=== PATIENT | male | born 1960 | race Hispanic/Latino ===

== ENCOUNTER 2017-08-25 10:54 | Inpatient (IN) | payer OTHER ==
[~2017-08-25] VITALS: Ht 162.6 cm; Wt 94.8 kg
[2017-08-25] VITALS (9 sets, daily range): BP systolic 130–158; BP diastolic 75–98
[2017-08-25] MEDS ORDERED: INSLAN SQ (14:02)
[2017-08-25] MEDS ORDERED: FURO20TA6 PO (14:04)
[2017-08-25] MEDS ORDERED: AEC81 PO (14:04)
[2017-08-25] MEDS ORDERED: LISI10TA7 PO (14:04)
[2017-08-25] MEDS ORDERED: LIDOCAINE HCL 2% 20ML ONE (17:51)
[2017-08-25] MEDS ORDERED: BIVALIRUDIN 250 MG/VIAL IV ONE (17:51)
[2017-08-25] MEDS ORDERED: NITROGLYCERIN 5 MG/ML 10 ML VIAL IV ONE (17:51)
[2017-08-25] MEDS ORDERED: HEPARIN SODIUM 1000UNIT/ML 10ML VIAL ONE (17:51)
[2017-08-25] MEDS ORDERED: IOPAMIDOL-370 100 ML VIAL IV ONE (17:52)
[2017-08-25] MEDS ORDERED: ISOVUE-370 50ML VIAL IV ONE (17:52)
[2017-08-25] MEDS ORDERED: LABETALOL 20 MG/4 ML DISP.SYRIN IV ONE ×3 (18:20→18:29)
[2017-08-25] MEDS ORDERED: NITROGLYCERIN 50 MG/D5% WATER 1 BOT ONE (18:25)
[2017-08-25] MEDS ORDERED: SODIUM CHLORIDE 0.9% 1000ML 1,000 ML IV SCH (18:48)
[2017-08-25] MEDS ORDERED: DEXTROSE 50%-WATER 50 ML DISP.SYRIN IV PRN (19:00)
[2017-08-25] MEDS ORDERED: GLUCAGON 1MG KIT 1 MG ML IM PRN (19:00)
[2017-08-25 20:20] LABS: HEMOGLOBIN A1C 9.3 % (4.0-6.0)
[2017-08-25 20:29] LABS: CHOLESTEROL 170 mg/dL (<200); HDL CHOLESTEROL 38 mg/dL (29-71); LDL DIRECT 113 mg/dL (0-99); TRIGLYCERIDES 136 mg/dL (30-200)
[2017-08-25] MEDS ORDERED: ONDANSETRON HCL 4 MG/2 ML VIAL IVP PRN (20:45)
[2017-08-25] MEDS ORDERED: NITROGLYCERIN 50 MG/D5% WATER 250 BOT IV PRN (20:45)
[2017-08-25] MEDS: METOPROLOL TARTRATE 25 MG TAB PO SCH (21:07)
[2017-08-25] MEDS ORDERED: MAGNESIUM 2GM PREMIX 50ML 50 ML IV PRN (21:45)
[2017-08-25] MEDS ORDERED: LIDOCAINE HCL-MPF 1% 2ML VIAL IVP PRN (21:45)
[2017-08-25] MEDS ORDERED: ACETAMINOPHEN 325 MG TAB PO PRN ×2 (21:45)
[2017-08-25] MEDS ORDERED: POTASSIUM CHLORIDE 20MEQ/100ML 100 ML IV PRN (21:45)
[2017-08-25] MEDS ORDERED: POTASSIUM CHLORIDE 20 MEQ ERTAB PO PRN (21:45)
[2017-08-25] MEDS ORDERED: POTASSIUM CHLORIDE 10% ELIXIR 20 MEQ/15 ML UDCUP PO PRN (21:45)
[2017-08-25] MEDS ORDERED: TEMAZEPAM 15 MG CAPSULE PO ONE (22:00)
[2017-08-25] MEDS ORDERED: TEMAZEPAM 15 MG CAPSULE ONE (23:15)
[2017-08-25] MEDS: INSULIN HUMULIN R 100 UNIT/ML 3ML SQ SCH (23:59)
[2017-08-26] VITALS (30 sets, daily range): BP systolic 92–162; BP diastolic 39–111
[2017-08-26 03:55] LABS: MEAN CORPUSCULAR HEMOGLOBIN 30.7 pg (27.0-33.0); MEAN CORPUSCULAR VOLUME 87.6 fL (79-99); PLATELET COUNT (AUTO) 230 K/uL (130-400); RED BLOOD CELL COUNT(AUTO) 3.43 MIL/uL (4.50-6.20); RED CELL DISTRIBUTION WIDTH 14.3 % (11.0-15.5); WHITE BLOOD COUNT (AUTO) 8.7 K/uL (4.8-10.8)
[2017-08-26 04:03] LABS: INR 0.97 (0.85-1.15); PARTIAL THROMBOPLASTIN TIME 31.9 SEC (26.3-35.5); PROTHROMBIN TIME 10.2 SEC (9.6-11.6)
[2017-08-26 04:05] LABS: B-TYPE NATRIURETIC PEPTIDE 518 pg/mL (0-100)
[2017-08-26 04:07] LABS: POTASSIUM 4.1 mmol/L (3.5-5.1)
[2017-08-26 04:11] LABS: HEMOGLOBIN A1C 9.2 % (4.0-6.0)
[2017-08-26] MEDS: INSULIN HUMULIN R 100 UNIT/ML 3ML SQ SCH (06:37)
[2017-08-26] MEDS ORDERED: SODIUM CHLORIDE 0.9% 1000ML 1,000 ML IV ONE ×2 (08:13→09:32)
[2017-08-26] MEDS: METOPROLOL TARTRATE 25 MG TAB PO SCH (08:48)
[2017-08-26] MEDS ORDERED: AMINOCAPROIC ACID 250 MG/ML 20 ML VIAL IV ONE (08:53)
[2017-08-26] MEDS ORDERED: EPINEPHRINE 1 MG/ML AMPULE ONE (08:53)
[2017-08-26] MEDS ORDERED: ESMOLOL HCL 10 MG/ML 10 ML VIAL ONE (08:53)
[2017-08-26] MEDS ORDERED: MILRINONE-D5W 20 MG/100 ML 0 ML IV ONE (08:53)
[2017-08-26] MEDS ORDERED: FENTANYL CITRATE PF 50 MCG/1 ML 20ML VIAL IJ ONE (08:53)
[2017-08-26] MEDS ORDERED: PROPOFOL 10 MG/ML 20ML VIAL IV ONE (08:53)
[2017-08-26] MEDS ORDERED: PROTAMINE SULFATE 10 MG/ML 25ML VIAL IV ONE (08:53)
[2017-08-26] MEDS ORDERED: ROCURONIUM BROMIDE 10MG/1ML 5ML VL ONE (08:53)
[2017-08-26] MEDS ORDERED: GLYCOPYRROLATE 0.2 MG/ML 5 ML VIAL ONE (08:53)
[2017-08-26] MEDS ORDERED: NOREPINEPHRINE BITARTRATE 1 MG/1 ML ML IV ONE (08:53)
[2017-08-26] MEDS ORDERED: HEPARIN SODIUM 1000UNIT/ML 10ML VIAL ONE ×2 (08:53→10:11)
[2017-08-26] MEDS ORDERED: AMIODARONE HCL 900MG/18ML IV ONE (08:53)
[2017-08-26] MEDS ORDERED: LIDOCAINE PF 2% 5ML ABBOJECT ONE (08:53)
[2017-08-26] MEDS ORDERED: MIDAZOLAM HCL 1 MG/ML 5ML VIAL ONE (08:54)
[2017-08-26] MEDS ORDERED: NITROGLYCERIN 50 MG/D5% WATER 1 BOT ONE (08:55)
[2017-08-26] MEDS ORDERED: FAMOTIDINE/PF 20 MG/2 ML VIAL IV SCH (09:00)
[2017-08-26] MEDS ORDERED: ASPIRIN 81 MG EC TAB PO SCH (09:00)
[2017-08-26] MEDS ORDERED: CEFUROXIME SODIUM 1.5 GM VIAL ONE ×2 (09:32→11:47)
[2017-08-26 10:09] LABS: ABG HCO3 27.2 mmol/L (21.0-28.0); ABG PCO2 40 mmHg (35-48)
[2017-08-26] MEDS ORDERED: THROMBIN-JMI 5000 UNIT/VIAL TP ONE (10:11)
[2017-08-26] MEDS ORDERED: PAPAVERINE HCL 30 MG/ML 2ML VIAL ONE (10:13)
[2017-08-26] MEDS ORDERED: BACITRACIN 50,000 UNIT VIAL ONE (10:13)
[2017-08-26 11:27] LABS: ABG BASE EXCESS 2.2 mmol/L (-2.0-3.0); ABG HCO3 26.4 mmol/L (21.0-28.0); ABG OXYGEN SATURATION 98.7 % (95.0-99.0); ABG PCO2 39 mmHg (35-48)
[2017-08-26] MEDS ORDERED: CEFUROXIME SODIUM 1.5 GM VIAL IVP SCH (12:00)
[2017-08-26] MEDS ORDERED: CEFUROXIME 1.5GM+NS 100ML 100 ML IV SCH ×2 (12:00→20:30)
[2017-08-26] MEDS ORDERED: WATER FOR INJECTION,STERILE 20 ML VIAL IJ SCH (12:00)
[2017-08-26] MEDS ORDERED: SODIUM CHLORIDE 0.9% 500ML 500 ML IV SCH (12:23)
[2017-08-26] MEDS ORDERED: GLUCAGON 1MG KIT 1 MG ML IM PRN (12:30)
[2017-08-26] MEDS ORDERED: NOREPINEPHRINE 4MG/NS 250ML 250 ML IV PRN (12:30)
[2017-08-26] MEDS ORDERED: PROPOFOL 1000 MG/100 ML 100 ML IV PRN (12:30)
[2017-08-26] MEDS ORDERED: CALCIUM GLUCONATE 1 GM in SODIUM CHLORIDE 0.9% 50 ML IV PRN (12:30)
[2017-08-26] MEDS ORDERED: ALBUMIN (HUMAN) 5% 250 ML IV PRN (12:30)
[2017-08-26] MEDS ORDERED: SODIUM CHLORIDE 0.9% 1000ML 1,000 ML IV SCH (12:30)
[2017-08-26] MEDS ORDERED: ACETAMINOPHEN 650 MG SUPPOSITORY RC PRN (12:30)
[2017-08-26] MEDS ORDERED: AMINOCAPROIC ACID 15,000 MG in SODIUM CHLORIDE 0.9% 250 ML IV SCH (12:30)
[2017-08-26] MEDS ORDERED: POTASSIUM PHOS 15 mMOL+NS250ML 250 ML IV PRN (12:30)
[2017-08-26] MEDS ORDERED: DEXTROSE 50%-WATER 50 ML DISP.SYRIN IV PRN (12:30)
[2017-08-26] MEDS ORDERED: SODIUM CHLORIDE 0.9% 250 ML IV PRN (12:30)
[2017-08-26] MEDS ORDERED: MORPHINE SULFATE 2 MG/ML 1ML SYG IV PRN (12:30)
[2017-08-26] MEDS ORDERED: NITROGLYCERIN 50 MG/D5% WATER 250 BOT IV SCH (12:30)
[2017-08-26] MEDS ORDERED: ACETAMINOPHEN 325 MG TAB PO PRN (12:30)
[2017-08-26] MEDS ORDERED: MORPHINE SULFATE 4 MG/1ML SYG IV PRN (12:30)
[2017-08-26] MEDS ORDERED: SODIUM CHLORIDE 0.9% 10 ML VIAL IVP PRN (12:30)
[2017-08-26] MEDS ORDERED: EPINEPHRINE 2 MG in SODIUM CHLORIDE 0.9% 250 ML IV PRN (12:30)
[2017-08-26] MEDS ORDERED: NICARDIPINE HCL 100 MG in SODIUM CHLORIDE 0.9% 60 ML IV PRN (12:30)
[2017-08-26 12:48] LABS: ABG BASE EXCESS -2.2 mmol/L (-2.0-3.0); ABG HCO3 22.5 mmol/L (21.0-28.0); ABG OXYGEN SATURATION 98.5 % (95.0-99.0); ABG PCO2 38 mmHg (35-48)
[2017-08-26] MEDS ORDERED: OCTYL 2-CYANOACRYLATE 1 EACH TP ONE (12:54)
[2017-08-26] MEDS: INSULIN REGULAR, HUMAN 3ML 100 UNIT in SODIUM CHLORIDE 0.9% 99 ML IV SCH ×4 (13:21→21:21)
[2017-08-26 13:41] LABS: HEMATOCRIT 30.1 % (42-54); MEAN CORPUSCULAR HEMOGLOBIN 30.2 pg (27.0-33.0); MEAN CORPUSCULAR VOLUME 88.9 fL (79-99); NUCLEATED RED BLOOD CELLS 0.1 % (0.0-0.19); PLATELET COUNT (AUTO) 209 K/uL (130-400); RED BLOOD CELL COUNT(AUTO) 3.38 MIL/uL (4.50-6.20); RED CELL DISTRIBUTION WIDTH 14.4 % (11.0-15.5); WHITE BLOOD COUNT (AUTO) 17.6 K/uL (4.8-10.8)
[2017-08-26 13:43] LABS: ABG BASE EXCESS -3.2 mmol/L (-2.0-3.0); ABG HCO3 21.8 mmol/L (21.0-28.0); ABG OXYGEN SATURATION 96.5 % (95.0-99.0); ABG PCO2 39 mmHg (35-48)
[2017-08-26] MEDS: SODIUM BICARB 8.4% 50ML SYRINGE IV PRN ×2 (13:46→13:47)
[2017-08-26] MEDS ORDERED: SODIUM BICARB 50MEQ 50ML VIAL ONE (13:46)
[2017-08-26 13:52] LABS: CREATININE 0.9 mg/dL (0.5-1.5); MAGNESIUM 1.6 mg/dL (1.80-2.40); PHOSPHORUS 3.5 mg/dL (2.5-4.9); POTASSIUM 4.2 mmol/L (3.5-5.1)
[2017-08-26] MEDS: ONDANSETRON HCL 4 MG/2 ML VIAL IV PRN ×2 (14:48→22:41)
[2017-08-26] MEDS: MAGNESIUM 2GM PREMIX 50ML 50 ML IV PRN (14:52)
[2017-08-26 15:24] LABS: ABG BASE EXCESS 0.1 mmol/L (-2.0-3.0); ABG HCO3 23.5 mmol/L (21.0-28.0); ABG OXYGEN SATURATION 97.9 % (95.0-99.0); ABG PCO2 35 mmHg (35-48)
[2017-08-26 17:12] LABS: ABG BASE EXCESS 0.1 mmol/L (-2.0-3.0); ABG HCO3 24.3 mmol/L (21.0-28.0); ABG OXYGEN SATURATION 96.7 % (95.0-99.0); ABG PCO2 38 mmHg (35-48)
[2017-08-26] MEDS: HYDROCODONE/ACETAMINOPHEN 5/325 MG TAB PO PRN (21:17)
[2017-08-26] MEDS: CEFUROXIME SODIUM 1.5 GM VIAL IVP SCH (21:23)
[2017-08-26] MEDS: WATER FOR INJECTION,STERILE 20 ML VIAL IJ SCH (21:24)
[2017-08-27] VITALS (25 sets, daily range): BP systolic 83–155; BP diastolic 35–76
[2017-08-27 03:33] LABS: MEAN CORPUSCULAR HEMOGLOBIN 30.1 pg (27.0-33.0); MEAN CORPUSCULAR HGB CONC 34.1 g/dL (32.0-36.0); MEAN CORPUSCULAR VOLUME 88.4 fL (79-99); PLATELET COUNT (AUTO) 163 K/uL (130-400); RED BLOOD CELL COUNT(AUTO) 2.94 MIL/uL (4.50-6.20); RED CELL DISTRIBUTION WIDTH 14.3 % (11.0-15.5); WHITE BLOOD COUNT (AUTO) 16.3 K/uL (4.8-10.8)
[2017-08-27 04:04] LABS: CREATININE 1.3 mg/dL (0.5-1.5); MAGNESIUM 2.2 mg/dL (1.80-2.40); PHOSPHORUS 3.3 mg/dL (2.5-4.9); POTASSIUM 3.9 mmol/L (3.5-5.1)
[2017-08-27] MEDS: POTASSIUM CHLORIDE 20MEQ/100ML 100 ML IV PRN (04:54)
[2017-08-27] MEDS ORDERED: ALBUMIN (HUMAN) 5% 250 ML IV ONE (05:07)
[2017-08-27] MEDS ORDERED: ALBUMIN (HUMAN) 5% 250 ML IV SCH (05:15)
[2017-08-27] MEDS: HYDROCODONE/ACETAMINOPHEN 5/325 MG TAB PO PRN (05:35)
[2017-08-27] MEDS: PANTOPRAZOLE SODIUM 40 MG TABLET.DR PO SCH (08:39)
[2017-08-27] MEDS: CEFUROXIME SODIUM 1.5 GM VIAL IVP SCH ×2 (08:39→19:51)
[2017-08-27] MEDS: WATER FOR INJECTION,STERILE 20 ML VIAL IJ SCH ×2 (08:39→19:51)
[2017-08-27] MEDS: ASPIRIN 81 MG EC TAB PO SCH (10:30)
[2017-08-27] MEDS ORDERED: ATORVASTATIN CALCIUM 40 MG TABLET PO SCH (21:00)
[2017-08-28] VITALS (20 sets, daily range): BP systolic 96–164; BP diastolic 36–77
[2017-08-28 04:01] LABS: HEMATOCRIT 26.5 % (42-54); MEAN CORPUSCULAR HEMOGLOBIN 28.5 pg (27.0-33.0); MEAN CORPUSCULAR HGB CONC 32.6 g/dL (32.0-36.0); MEAN CORPUSCULAR VOLUME 87.2 fL (79-99); PLATELET COUNT (AUTO) 172 K/uL (130-400); RED BLOOD CELL COUNT(AUTO) 3.04 MIL/uL (4.50-6.20); RED CELL DISTRIBUTION WIDTH 14.4 % (11.0-15.5); WHITE BLOOD COUNT (AUTO) 19.3 K/uL (4.8-10.8)
[2017-08-28 04:10] LABS: B-TYPE NATRIURETIC PEPTIDE 647 pg/mL (0-100)
[2017-08-28 04:14] LABS: BAND NEUTROPHILS % (MANUAL) 12 % (0-2); CREATININE 1.1 mg/dL (0.5-1.5); LYMPHOCYTES % (MANUAL) 9 % (22-44); MAGNESIUM 2.4 mg/dL (1.80-2.40); MAN.DIFF COMMENT-IMPRESSION MANUAL DIFFERENTIAL; MONOCYTES % (MANUAL) 1 % (2-9); PHOSPHORUS 3.4 mg/dL (2.5-4.9); PLATELET MORPHOLOGY COMMENT ADEQUATE; POTASSIUM 3.8 mmol/L (3.5-5.1); SEGMENTED NEUTROPHILS % 78 % (40-70)
[2017-08-28] MEDS: INSULIN HUMULIN R 100 UNIT/ML 3ML SQ SCH ×4 (07:30→21:00)
[2017-08-28] MEDS: FUROSEMIDE 20 MG TABLET PO SCH ×2 (08:47→17:15)
[2017-08-28] MEDS: ASPIRIN 81 MG EC TAB PO SCH (08:47)
[2017-08-28] MEDS: PANTOPRAZOLE SODIUM 40 MG TABLET.DR PO SCH (08:47)
[2017-08-28] MEDS: POTASSIUM CHLORIDE 20MEQ/100ML 100 ML IV PRN (08:51)
[2017-08-28] MEDS: METOPROLOL TARTRATE 25 MG TAB PO SCH (08:51)
[2017-08-28] MEDS: ASPIRIN 81MG TAB.CHEW PO SCH (09:00)
[2017-08-28] MEDS: HYDROCODONE/ACETAMINOPHEN 5/325 MG TAB PO PRN (18:07)
[2017-08-28] MEDS: ATORVASTATIN CALCIUM 40 MG TABLET PO SCH (20:00)
[2017-08-29 03:36] LABS: HEMATOCRIT 24.6 % (42-54); MEAN CORPUSCULAR HEMOGLOBIN 29.5 pg (27.0-33.0); MEAN CORPUSCULAR HGB CONC 33.3 g/dL (32.0-36.0); MEAN CORPUSCULAR VOLUME 88.4 fL (79-99); NUCLEATED RED BLOOD CELLS 0.1 % (0.0-0.19); PLATELET COUNT (AUTO) 185 K/uL (130-400); RED BLOOD CELL COUNT(AUTO) 2.78 MIL/uL (4.50-6.20); RED CELL DISTRIBUTION WIDTH 14.6 % (11.0-15.5); WHITE BLOOD COUNT (AUTO) 17.7 K/uL (4.8-10.8)
[2017-08-29 03:48] VITALS: BP 120/62
[2017-08-29 04:00] LABS: CREATININE 1.3 mg/dL (0.5-1.5); MAGNESIUM 2.3 mg/dL (1.80-2.40); PHOSPHORUS 3.4 mg/dL (2.5-4.9); POTASSIUM 4.1 mmol/L (3.5-5.1)
[2017-08-29 04:21] LABS: BAND NEUTROPHILS % (MANUAL) 10 % (0-2); LYMPHOCYTES % (MANUAL) 10 % (22-44); MAN.DIFF COMMENT-IMPRESSION MANUAL DIFFERENTIAL; MONOCYTES % (MANUAL) 3 % (2-9); SEGMENTED NEUTROPHILS % 77 % (40-70)
[2017-08-29 04:22] LABS: PLATELET MORPHOLOGY COMMENT ADEQUATE
[2017-08-29] MEDS: INSULIN HUMULIN R 100 UNIT/ML 3ML SQ SCH ×4 (05:59→23:14)
[2017-08-29 07:48] VITALS: BP 124/64
[2017-08-29] MEDS: ASPIRIN 81MG TAB.CHEW PO SCH (09:00)
[2017-08-29] MEDS: FUROSEMIDE 20 MG TABLET PO SCH ×2 (09:02→17:25)
[2017-08-29] MEDS: ASPIRIN 81 MG EC TAB PO SCH (09:02)
[2017-08-29] MEDS: METOPROLOL TARTRATE 25 MG TAB PO SCH ×2 (09:03→20:14)
[2017-08-29] MEDS: PANTOPRAZOLE SODIUM 40 MG TABLET.DR PO SCH (09:03)
[2017-08-29 11:11] VITALS: BP 124/68
[2017-08-29 15:59] VITALS: BP 133/75
[2017-08-29 19:00] VITALS: BP 115/59
[2017-08-29] MEDS: ATORVASTATIN CALCIUM 40 MG TABLET PO SCH (20:14)
[2017-08-29 23:06] VITALS: BP 111/64
[2017-08-30 03:17] VITALS: BP 115/61
[2017-08-30 03:43] LABS: HEMATOCRIT 25.7 % (42-54); MEAN CORPUSCULAR HEMOGLOBIN 28.6 pg (27.0-33.0); MEAN CORPUSCULAR HGB CONC 32.8 g/dL (32.0-36.0); MEAN CORPUSCULAR VOLUME 87.3 fL (79-99); NUCLEATED RED BLOOD CELLS 0.4 % (0.0-0.19); PLATELET COUNT (AUTO) 215 K/uL (130-400); RED BLOOD CELL COUNT(AUTO) 2.94 MIL/uL (4.50-6.20); RED CELL DISTRIBUTION WIDTH 14.3 % (11.0-15.5); WHITE BLOOD COUNT (AUTO) 13.8 K/uL (4.8-10.8)
[2017-08-30] MEDS: INSULIN HUMULIN R 100 UNIT/ML 3ML SQ SCH ×4 (06:37→21:00)
[2017-08-30 07:29] VITALS: BP 134/77
[2017-08-30] MEDS: ASPIRIN 81 MG EC TAB PO SCH (08:40)
[2017-08-30] MEDS: FUROSEMIDE 20 MG TABLET PO SCH ×2 (08:40→16:44)
[2017-08-30] MEDS: PANTOPRAZOLE SODIUM 40 MG TABLET.DR PO SCH (08:40)
[2017-08-30] MEDS: ASPIRIN 81MG TAB.CHEW PO SCH (08:40)
[2017-08-30] MEDS: ENOXAPARIN SODIUM 30 MG/0.3 ML SQ SCH (08:41)
[2017-08-30] MEDS: METOPROLOL TARTRATE 25 MG TAB PO SCH ×2 (08:41→20:06)
[2017-08-30 11:09] VITALS: BP 134/74
[2017-08-30] MEDS: HYDROCODONE/ACETAMINOPHEN 5/325 MG TAB PO PRN (15:19)
[2017-08-30 16:22] VITALS: BP 150/88
[2017-08-30] MEDS: IPRATROPIUM 0.5 MG/2.5 ML INH IH SCH ×2 (16:33→22:35)
[2017-08-30 19:03] VITALS: BP 103/57
[2017-08-30] MEDS ORDERED: ATORVASTATIN CALCIUM 40 MG TABLET PO SCH (21:00)
[2017-08-30 23:42] VITALS: BP 127/69
[2017-08-31 03:22] LABS: HEMATOCRIT 24.4 % (42-54); MEAN CORPUSCULAR HEMOGLOBIN 29.5 pg (27.0-33.0); MEAN CORPUSCULAR HGB CONC 34.1 g/dL (32.0-36.0); MEAN CORPUSCULAR VOLUME 86.5 fL (79-99); NUCLEATED RED BLOOD CELLS 0.1 % (0.0-0.19); PLATELET COUNT (AUTO) 250 K/uL (130-400); RED BLOOD CELL COUNT(AUTO) 2.82 MIL/uL (4.50-6.20); RED CELL DISTRIBUTION WIDTH 14.1 % (11.0-15.5); WHITE BLOOD COUNT (AUTO) 12.2 K/uL (4.8-10.8)
[2017-08-31 03:31] VITALS: BP 150/77
[2017-08-31 03:33] LABS: MAGNESIUM 1.8 mg/dL (1.80-2.40)
[2017-08-31] MEDS: HYDROCODONE/ACETAMINOPHEN 5/325 MG TAB PO PRN (04:42)
[2017-08-31] MEDS: MAGNESIUM 2GM PREMIX 50ML 50 ML IV PRN (04:43)
[2017-08-31] MEDS: INSULIN HUMULIN R 100 UNIT/ML 3ML SQ SCH ×2 (06:12→11:52)
[2017-08-31] MEDS: IPRATROPIUM 0.5 MG/2.5 ML INH IH SCH (06:31)
[2017-08-31 07:24] VITALS: BP 137/73
[2017-08-31] MEDS: METOPROLOL TARTRATE 25 MG TAB PO SCH (08:51)
[2017-08-31] MEDS: FUROSEMIDE 20 MG TABLET PO SCH (08:51)
[2017-08-31] MEDS: PANTOPRAZOLE SODIUM 40 MG TABLET.DR PO SCH (08:51)
[2017-08-31] MEDS: ASPIRIN 81MG TAB.CHEW PO SCH (08:51)
[2017-08-31] MEDS: ENOXAPARIN SODIUM 30 MG/0.3 ML SQ SCH (08:52)
[2017-08-31] MEDS ORDERED: CLOPIDOGREL BISULFATE 75 MG TAB PO SCH (09:00)
[2017-08-31] MEDS ORDERED: METO25 PO (09:50)
[2017-08-31] MEDS ORDERED: FURO40TA5 PO (09:50)
[2017-08-31] MEDS ORDERED: ATOR40TA69 PO (09:50)
[2017-08-31] MEDS ORDERED: LISI2.5T2 PO (09:50)
[2017-08-31] MEDS ORDERED: APIX5TAB PO (09:50)
[2017-08-31] MEDS ORDERED: AMIO200T2 PO (09:50)
[2017-08-31 11:26] VITALS: BP 147/83
== END 2017-08-31 12:56 | disposition home or self-care (01) | DRG 233 ==
LOC: 2AH 12:58 → 2CH 18:40 → 2CV 08-26 09:30 → 2BH 08-26 17:35 → 2AH 08-28 23:10
PROVIDERS: ADMIT Internal Medicine Cardiovascular Disease; ATTEND Internal Medicine Cardiovascular Disease
PROC: 4A023N7 Measurement of Cardiac Sampling and Pressure, Left Heart, Percutaneous Approach (ICD-10-PCS; principal; 2017-08-25)
PROC: B2111ZZ Fluoroscopy of Multiple Coronary Arteries using Low Osmolar Contrast (ICD-10-PCS; 2017-08-25)
PROC: B2151ZZ Fluoroscopy of Left Heart using Low Osmolar Contrast (ICD-10-PCS; 2017-08-25)
PROC: 021209W Bypass Coronary Artery, Three Arteries from Aorta with Autologous Venous Tissue, Open Approach (ICD-10-PCS; 2017-08-26)
PROC: 02100Z9 Bypass Coronary Artery, One Artery from Left Internal Mammary, Open Approach (ICD-10-PCS; 2017-08-26)
PROC: 06BP0ZZ Excision of Right Saphenous Vein, Open Approach (ICD-10-PCS; 2017-08-26)
PROC: B2131ZZ Fluoroscopy of Multiple Coronary Artery Bypass Grafts using Low Osmolar Contrast (ICD-10-PCS; 2017-08-26 09:41)
DX: I21.4 Non-ST elevation (NSTEMI) myocardial infarction (principal); I50.33 Acute on chronic diastolic (congestive) heart failure; E66.01 Morbid (severe) obesity due to excess calories; I31.3 Pericardial effusion (noninflammatory); I48.91 Unspecified atrial fibrillation; E11.65 Type 2 diabetes mellitus with hyperglycemia; I48.92 Unspecified atrial flutter; E78.5 Hyperlipidemia, unspecified; G47.33 Obstructive sleep apnea (adult) (pediatric); I11.0 Hypertensive heart disease with heart failure; I25.10 Atherosclerotic heart disease of native coronary artery without angina pectoris; I34.0 Nonrheumatic mitral (valve) insufficiency; I49.3 Ventricular premature depolarization; J44.9 Chronic obstructive pulmonary disease, unspecified; Z72.0 Tobacco use; Z79.01 Long term (current) use of anticoagulants; Z79.82 Long term (current) use of aspirin; Z79.899 Other long term (current) drug therapy; Z90.49 Acquired absence of other specified parts of digestive tract; Z91.19 Patient's noncompliance with other medical treatment and regimen; Z83.3 Family history of diabetes mellitus; Z82.49 Family history of ischemic heart disease and other diseases of the circulatory system
CPT/HCPCS: 36415; 36600; 71045; 80048; 80061; 82330; 82435; 82803; 82947; 82948; 83036; 83605; 83735; 83880; 84100; 84132; 84295; 85018; 85025; 85027; 85347; 85610; 85730; 86850; 86900; 86901; 86922; 93458; 93880; 94002; 94010; 94640; 94664; 97039; A4218; A7048; C1760; C1894; J0171; J0282; J0583; J0697; J1644; J1650; J1815; J2001; J2250; J2260; J2405; J2440; J2704; J2720; J3010; J3475; J3480; J3490; J7030; J7040; J7070; J7120; P9045; Q9967